=== PATIENT | male | born 1990 | race African-American/Black ===

== ENCOUNTER 2024-12-28 15:49 | Emergency (ER) | payer OTHER ==
[2024-12-28] MEDS: Acetaminophen 500 MG Tab PO ONE (16:23)
[2024-12-28] MEDS: Ibuprofen 600 MG Tab PO ONE (16:23)
== END 2024-12-28 17:27 | disposition home or self-care (01) ==
LOC: MW.ED 15:49
DX: M79.641 Pain in right hand (principal); I10 Essential (primary) hypertension; Z79.84 Long term (current) use of oral hypoglycemic drugs; Z79.899 Other long term (current) drug therapy; Z75.8 Other problems related to medical facilities and other health care
CPT/HCPCS: 73120; 99283; A9270